=== PATIENT | male | born 2000 | race Caucasian/White ===

== ENCOUNTER 2019-02-24 18:31 | Emergency (ER) | payer BC, OTHER ==
[~2019-02-24] VITALS: Ht 180.3 cm; Wt 62.2 kg
[2019-02-24 18:38] VITALS: Ht 180.3 cm; Wt 62.2 kg
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
[2019-02-24] MEDS ORDERED: ACETAMINOPHEN 325 MG TAB PO ONE (20:00)
[2019-02-24] MEDS ORDERED: ACET500C5 PO (21:31)
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
[2019-02-24 21:45] VITALS: BP 124/83; PULSE 65; RESP 18
== END 2019-02-24 21:46 | disposition home or self-care (01) ==
LOC: FTE 18:31
DX: S09.90XA Unspecified injury of head, initial encounter (principal); R51 Headache; W22.09XA Striking against other stationary object, initial encounter; Y92.9 Unspecified place or not applicable
CPT/HCPCS: 70450